=== PATIENT | male | born 1980 | race Caucasian/White ===

== ENCOUNTER 2019-07-25 10:48 | Emergency (ER) | payer BC, OTHER ==
[~2019-07-25] VITALS: Ht 177.8 cm; Wt 95.3 kg
[2019-07-25] MEDS ORDERED: MOBIC15 MG PO (12:06)
[2019-07-25 12:26] VITALS: BP 142/87
== END 2019-07-25 12:26 | disposition home or self-care (01) ==
LOC: ER 10:48 → EDBD 10:48 → ER 12:26
DX: M13.131 Monoarthritis, not elsewhere classified, right wrist (principal)

== ENCOUNTER 2020-09-24 12:28 | Emergency (ER) | payer BC, OTHER ==
[~2020-09-24] VITALS: Ht 182.9 cm; Wt 90.7 kg
[~2020-09-24 12:28] MED LIST: MOBIC15 MG PO
[2020-09-24] MEDS ORDERED: NORCO7.5 PO (13:52)
[2020-09-24 13:55] VITALS: BP 128/85
== END 2020-09-24 13:58 | disposition home or self-care (01) ==
LOC: ER 12:28
DX: S90.32XA Contusion of left foot, initial encounter (principal); W22.8XXA Striking against or struck by other objects, initial encounter; Y93.89 Activity, other specified; Y92.89 Other specified places as the place of occurrence of the external cause; Y99.8 Other external cause status

== ENCOUNTER 2020-10-17 15:51 | Emergency (ER) | payer BC, OTHER ==
[~2020-10-17] VITALS: Ht 182.9 cm; Wt 99.8 kg
[~2020-10-17 15:51] MED LIST changes: +NORCO7.5 PO
[2020-10-17] MEDS ORDERED: NORCO 10-325 T1 EACH PO (17:58)
[2020-10-17] MEDS ORDERED: POLYMYXIN B/TMP10 ML OPHTHALMIC (17:58)
[2020-10-17 18:24] VITALS: BP 140/95
== END 2020-10-17 18:34 | disposition home or self-care (01) ==
LOC: ER 15:51
DX: T15.01XA Foreign body in cornea, right eye, initial encounter (principal); X58.XXXA Exposure to other specified factors, initial encounter; Y93.89 Activity, other specified; Y92.89 Other specified places as the place of occurrence of the external cause; Y99.9 Unspecified external cause status